=== PATIENT | female | born 1980 | race African-American/Black ===

== ENCOUNTER → 2018-07-30 | Outpatient (CLI) | payer OTHER ==
--- NOTE | 2018-07-30 16:33 | KCIC ---
Transabdominal transvaginal sonography of the pelvis Clinical indications: Left-sided pelvic pain. Heavy bleeding. History of ovarian cyst. 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 History of endometriosis. Transabdominal sonography: Uterus is anteverted in position. The endometrial canal is poorly visualized. Therefore, transvaginal sonography will be performed. Transvaginal sonography: The right ovary measures 2.8 cm and 3.4 cm and 2.5 in size and contains a small collapsed corpus luteum or old hemorrhagic cyst measuring 17 mm in greatest dimension. Color Doppler flow is seen within the right ovary. Within the left adnexa, a complex solid and cystic mass lesion is seen measuring 4.2 cm in size. Increased color flow is seen within it. A small amount of free fluid is seen within the cul-de-sac. The endometrium is not hyperemic and measures 8 mm in thickness. There is a small posterior uterine fibroid within the mid body of the uterus measuring 11 mm in size. IMPRESSION: Complex solid and cystic left adnexal mass with increased vascularity measuring up to 4.2 cm. History of left ovary removal 10 years ago for tumor. Therefore, recurrent tumor or endometriosis are possibilities. Collapsing corpus luteum or resolving hemorrhagic cyst of the right ovary measuring 17 mm. Small posterior uterine fibroid. Electronically signed by: Van Francis MD (07/30/2018 4:30 PM) [facility]
== END | disposition home or self-care (01) ==
LOC: KCIC US 09:35
DX: D25.9 Leiomyoma of uterus, unspecified (principal); N83.8 Other noninflammatory disorders of ovary, fallopian tube and broad ligament
CPT/HCPCS: 76830; 76856